=== PATIENT | female | born 1985 | race Caucasian/White ===

== ENCOUNTER 2020-09-24 05:58 | Day surgery (SDC) | payer OTHER ==
[~2020-09-24] VITALS: Ht 170.2 cm; Wt 71.2 kg
[2020-09-24 06:42] LABS: HEMATOCRIT 40.6 % (36.0-48.0); HEMOGLOBIN 13.9 g/dL (12-16); MCH 30.6 pg (26.0-34.0); MCHC 34.2 g/dL (31.0-37.0); MCV 89.6 fL (80.0-100.0); RBC 4.53 10x6/uL (4.00-5.40); RDW 12.7 % (11.5-14.5)
[2020-09-24 06:43] LABS: HCG SERUM NEGATIVE (NEGATIVE)
[2020-09-24 07:31] VITALS: BP 115/78; Ht 170.2 cm; Wt 71.2 kg
--- NOTE | 2020-09-24 14:20 | NUR ---
STARTED TO REMOVE VAGINAL PACKING AND FELT SOME RESISTANCE WHEN PART OF THE PACKING HAD BEEN REMOVED. PT WINCED AND SAID SHE FELT SOME "TUGGING" AT THIS POINT. NOTIFIED DR LOPEZ, HE SAID TO CONTINUE TO REMOVE PACKING BY PULLING IT OUT. WENT BACK TO PT'S ROOM AND PULLED ON PACKING MORE AND FELT PACKING START TO COME OUT AGAIN. PT WINCED AGAIN AND SAID SHE FELT THE TUGGING AGAIN BUT WAS BETTER ONCE THAT PART DISLODGED. CONTINUED TO BE ABLE TO REMOVE VAGINAL PACKING FREELY. NO ACTIVE BLEEDING NOTED AFTER PACKING REMOVED. PROVIDED PT WITH MESH UNDERWEAR AND A HEATHER PAD.
--- NOTE | 2020-09-24 14:30 | NUR ---
DISCHARGED VIA W/C, ACCOMPANIED BY THIS NURSE, TO POV WITH SPOUSE DRIVING. ALL BELONGINGS WITH PT/SPOUSE.
== END 2020-09-24 14:30 | disposition home or self-care (01) ==
LOC: D.OPS 05:58
PROVIDERS: Anesthesiology; ATTEND Obstetrics & Gynecology Maternal & Fetal Medicine
DX: N92.0 Excessive and frequent menstruation with regular cycle (principal); N94.6 Dysmenorrhea, unspecified; N81.6 Rectocele